=== PATIENT | male | born 1985 | race Two or more races ===

== ENCOUNTER 2021-02-15 04:58 | Emergency (ER) | payer OTHER ==
[~2021-02-15] VITALS: Ht 172.7 cm; Wt 101.6 kg
[2021-02-15] MEDS ORDERED: PRED20TA2 PO (05:38)
[2021-02-15] MEDS ORDERED: KETOROLAC TROMETH 60MG/2ML VIAL IM ONE (05:45)
[2021-02-15] MEDS ORDERED: methylPREDNISolone SOD SUCC 125 MG/2 ML VL IM ONE (05:45)
[2021-02-15 06:03] VITALS: BP 145/79
== END 2021-02-15 06:06 | disposition home or self-care (01) ==
LOC: ER 04:58
DX: S39.012A Strain of muscle, fascia and tendon of lower back, initial encounter (principal); X58.XXXA Exposure to other specified factors, initial encounter; Y93.89 Activity, other specified; Y92.89 Other specified places as the place of occurrence of the external cause; Y99.8 Other external cause status
CPT/HCPCS: 96372; 99284; J1885; J2930